=== PATIENT | male | born 1975 | race American Indian/Alaskan Native ===

== ENCOUNTER 2017-04-25 09:12 | Day surgery (SDC) | payer MEDICARE ==
--- NOTE | 2017-04-25 09:37 | Short Stay Summary ---
Short Stay Documentation Date of service: 04/25/17 - History Principal diagnosis: LUE swelling H&P: obtained from office - Allergies and Medications Current Medications: Allergies cefazolin sodium [From [facility]] Allergy (Verified 02/18/17 08:06) Vomiting Home Medications Medication Instructions Recorded Confirmed Last Taken Type Calcium Acetate 667 mg PO TID 01/10/14 02/18/17 1 Day Ago History Active Medications Sodium Chloride (Nacl 0.9% 1000 Ml) 1,000 mls @ 42 mls/hr IV DIRECT VICKY - Brief post op/procedure progress note Date of procedure: 04/25/17 Pre-op diagnosis: malfunctioning dialysis access Post-op diagnosis: same Procedure: LUE FGA Anesthesia: local Surgeon: SAMY CHRISTINA Estimated blood loss: minimal Pathology: none Condition: stable - Disposition Condition at discharge: Good Disposition: DISCHARGED TO HOME OR SELFCARE Short Stay Discharge Plan Activity: advance as tolerated Weight Bearing Status: Weight Bear as Tolerated Diet: renal Wound: keep clean and dry, per your surgeon's advice Follow up with: DIANNA MARTIN MD [Primary Care Provider] - 7 Days SUSAN MONTALVO MD [Staff Physician] - 7 Days
[2017-04-25] MEDS ORDERED: NACL 0.9% 500 ML 500 ML IV SCH (10:00)
[2017-04-25] MEDS ORDERED: HEPARIN 10,000 UNITS/10 ML ONE (10:55)
[2017-04-25] MEDS ORDERED: VANCOMYCIN/NS 1 GM/250 ML 1 GM/250 ML BAG IV ONE (10:55)
[2017-04-25] MEDS ORDERED: SUBLIMAZE ONE (10:55)
[2017-04-25] MEDS ORDERED: XYLOCAINE 2% INFILTRATI ONE (10:55)
[2017-04-25] MEDS ORDERED: VERSED ONE (10:55)
[2017-04-25] MEDS ORDERED: HEPARIN/NS 5000 UNIT/500ML(CATH LAB) 1,000 ML IR ONE (10:55)
--- NOTE | 2017-04-25 11:45 | Operative Report ---
Operative Report Operative Report: EXAM: LEFT UPPER EXTREMITY FISTULOGRAM CLINICAL INDICATION: LEFT ARM AND FACIAL SWELLING DATE: 04/25/2017 PROCEDURE: Following an excellent addition of the risks, benefits and alternatives; written informed consent was obtained. The patient was brought to the injury graphic suite and placed in supine position on the examination table. A palpable thrill is present in the patient's left upper extremity fistula. There is diffuse swelling of the left upper extremity. Patient's left arm and fistula were prepped and draped in the usual sterile fashion. 1% lidocaine was used for anesthesia. A 7 cm 21-gauge needle was advanced to the fistula directed towards the venous outflow. A 0.018 guidewire was advanced through the needle and the needle removed and exchanged for a micro-sheath. The 0.018 guidewire was exchanged for a 0.035 guidewire and the micro-sheath exchanged for a 6 [place]oc[place] vascular sheath. Venography performed to the sheath demonstrates an enlarged fistula an area the cannulation site with the presence of extensive collateral veins in the upper arm. There is complete occlusion of the subclavian vein with only collateral flow distally. No filling of the right cephalic vein or SVC is identified from the left side even on delayed imaging. A 4 Moroccan vertebral catheter was then advanced over the guidewire to the area of the occlusion. Multiple attempts were made to cannulate the occluded subclavian vein. 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 Ultimately, the subclavian vein remains occluded and the catheters, guidewires and she's were removed and hemostasis achieved using 4-0 Vicryl suture and manual compression. A sterile dressing was then applied. The patient tolerated the procedure well. There were no immediate post procedure competitions. Conscious sedation was performed under the guidance of radiologic nursing. Continuous cardiopulmonary monitoring was utilized. IMPRESSION: 1) Left upper extremity fistulogram demonstrating complete occlusion of the left subclavian vein. The patient has known occlusion of the left brachial cephalic vein and this appears to be an extension of that process. Patient has poorly developed collaterals leading to left upper extremity swelling. He will need further evaluation for possible fistula ligation in fistula creation in the right arm.
[2017-04-25 12:40] VITALS: BP 142/94
[2017-04-25] MEDS ORDERED: NACL 0.9% 1000 ML 1,000 ML IV SCH (16:00)
== END 2017-04-25 13:00 | disposition home or self-care (01) ==
LOC: OPU 09:12
PROVIDERS: ATTEND Radiology Diagnostic Radiology
DX: T82.590A Other mechanical complication of surgically created arteriovenous fistula, initial encounter (principal); I12.0 Hypertensive chronic kidney disease with stage 5 chronic kidney disease or end stage renal disease; N18.6 End stage renal disease; Y83.2 Surgical operation with anastomosis, bypass or graft as the cause of abnormal reaction of the patient, or of later complication, without mention of misadventure at the time of the procedure; Z99.2 Dependence on renal dialysis; Z88.1 Allergy status to other antibiotic agents; Z98.890 Other specified postprocedural states; Z79.899 Other long term (current) drug therapy
CPT/HCPCS: 36415; 36901; 84132; C1751; C1769; C1894; J1644; J2250; J3010; J3370; J7040; Q9967

== ENCOUNTER 2017-06-09 07:20 | Day surgery (SDC) | payer MEDICARE ==
[~2017-06-09 07:20] MED LIST: NACL 0.9% 1000 ML 1,000 ML IV SCH; VANCOMYCIN/NS 1 GM/250 ML 1 GM/250 ML BAG IV NR
[2017-06-09] MEDS ORDERED: DILAUDID IV PRN (08:52)
--- NOTE | 2017-06-09 08:54 | Anesthesia Day of Surgery ---
Anesthesia Day of Surgery - Day of Surgery Patient Examined: Yes Patient H&P Reviewed: Yes Patient is NPO: Yes
--- NOTE | 2017-06-09 08:58 | Anesthesia Consultation ---
Anesthesia Consult and Med Hx Date of service: 06/16/17 - Airway Anesthetic Teeth Evaluation: Good ROM Head & Neck: Adequate Mental/Hyoid Distance: Adequate Mallampati Class: Class II Intubation Access Assessment: Probably Good - Pulmonary Exam CTA: Yes - Cardiac Exam Cardiac Exam: RRR - Pre-Operative Health Status ASA Pre-Surgery Classification: ASA3 Proposed Anesthetic Plan: General - Pulmonary Hx Smoking: Yes (QUIT 2 MONTHS AGO, SMOKED 1/2 PPD X 6 YRS) Hx Asthma: No COPD: No Hx Pneumonia: No Hx Sleep Apnea: No - Cardiovascular System Hx Hypertension: No - Central Nervous System Hx Seizures: No CVA: No Hx Psychiatric Problems: No - Endocrine Hx Renal Disease: Yes (dialysis , had HD yesterday) Hx End Stage Renal Disease: Yes (2000 started dialysis - LUE fistula functioning but arm swollen) Hx Cirrhosis: No Hx Insulin Dependent Diabetes: No Hx Non-Insulin Dependent Diabetes: No Hx Thyroid Disease: No (s/p parathyroidectomy) - Hematic Hx Anemia: Yes - Other Systems Hx Alcohol Use: No Hx Cancer: No Hx Obesity: No
[2017-06-09] MEDS ORDERED: PEPCID PO NR (09:00)
[2017-06-09] MEDS ORDERED: VERSED IV NR (09:00)
[2017-06-09] MEDS ORDERED: DIPRIVAN 10 MG/ML IV ONE (09:05)
[2017-06-09] MEDS ORDERED: SUBLIMAZE ONE ×2 (09:05→12:31)
[2017-06-09] MEDS ORDERED: XYLOCAINE MPF 2% ONE (09:20)
[2017-06-09] MEDS ORDERED: ROBINUL ONE (09:20)
[2017-06-09] MEDS ORDERED: ZOFRAN IV PRN (09:30)
[2017-06-09] MEDS ORDERED: NEO SYNEPHRINE ONE (09:55)
[2017-06-09 10:23] LABS: BUN/Creatinine Ratio 3.84; Chloride 96.9 mmol/L (98-107); Potassium 5.3 mmol/L (3.6-5.0)
[2017-06-09 10:26] LABS: Hematocrit 35.2 % (35.5-45.6); Hemoglobin 11.1 gm/dl (11.8-15.2); Mean Corpuscular HGB Conc 32 % (32-34); Mean Corpuscular Hemoglobin 28 pg (28-32); Mean Corpuscular Volume 89 fl (84-94); Platelet Count 135 K/mm3 (140-440); Red Blood Count 3.96 M/mm3 (3.65-5.03); Red Cell Distribution Width 17.8 % (13.2-15.2); White Blood Count 2.6 K/mm3 (4.5-11.0)
[2017-06-09] MEDS ORDERED: RIFADIN ONE (10:36)
[2017-06-09] MEDS ORDERED: NACL ONE (10:36)
[2017-06-09] MEDS ORDERED: NACL 0.9% 500 ML 500 ML ONE (10:36)
[2017-06-09] MEDS ORDERED: GELFOAM TP ONE ×2 (10:36→11:34)
[2017-06-09] MEDS ORDERED: MARCAINE-EPI/PF 0.5%-1:200,000 INFILTRATI ONE ×2 (10:36→11:34)
[2017-06-09] MEDS ORDERED: THROMBIN (BOVINE) TP ONE ×2 (10:36→11:34)
[2017-06-09] MEDS ORDERED: HEPARIN 10,000 UNITS/10 ML ONE ×2 (10:36→12:05)
[2017-06-09] MEDS ORDERED: NACL 0.9% 100 ML ONE (10:55)
[2017-06-09] MEDS ORDERED: NACL 0.9% 250ML IV ONE (11:34)
[2017-06-09] MEDS ORDERED: HEPARIN 10,000 UNITS/10 ML IV ONE (11:34)
[2017-06-09] MEDS ORDERED: DECADRON ONE (11:56)
[2017-06-09] MEDS ORDERED: ZOFRAN ONE (11:56)
[2017-06-09 12:12] LABS: Basophils % (Manual) 0 % (0.0-1.8); Blastocytes % (Manual) 0 %; Eosinophils % (Manual) 0 % (0.0-4.3)
[2017-06-09 12:13] LABS: Tear Drop Cells Few
[2017-06-09 12:15] LABS: Ovalocytes Rare; Poikilocytosis 1+
[2017-06-09 12:16] LABS: Diff Status Complete; Platelet Estimate Consistent w Auto
--- NOTE | 2017-06-09 12:58 | Operative Report ---
Operative Report Operative Report: Date of procedure: 06/09/2017 Pre-operative diagnosis: End-stage renal failure Post-operative diagnosis: Same Procedure name(s): Basalic vein to brachial artery fistula at the level of the elbow in the right upper extremity by forearm transposition Surgeon: Mike Choudhury MD Typists Supervisor: [CHARU Coburn] Anesthesia: Local MAC EBL: Less than 50 mL Operative indication: Patient is a 41 year old male with a history of end-stage renal failure. The patient presents for establishment of long-term hemodialysis access. Findings: Excellent thrill in the arteriovenous fistula at the end of the procedure. Easily palpable radial pulse distal to the anastomosis. Procedure: The patient was placed on the table in the supine position. The right arm was prepped with ChloraPrep solution and draped in the usual sterile fashion. The ultrasound was used to identify the basilic vein after a tourniquet had been placed in the upper arm using a rubber glove. The vein appeared to be of adequate caliber and no thrombus was noted. The cephalic vein at the wrist contained chronic thrombus. The cephalic vein in the upper arm had been previously used for a fistula and there appeared to be a stent in the vein on ultrasound. The vein was completely occluded. Overall, it appeared that the upper arm basilic vein was the best vein to use. Under local anesthesia, an incision was made across the elbow medially along the course of the basilic vein. Dissection was carried out to identify the basilic vein. A small, separate incision was made in the antecubital fossa just above the previous incision site to identify the brachial artery. This was surrounded with Vesseloops proximally and distally just proximal to the previous vein anastomosis.. The vein was dissected from the surrounding tissue to provide enough length to reach the artery. A small subcutaneous tunnel was then made between the 2 incisions. The vein was divided distally and then spatulated to create a T-type anastomosis with the side of the artery. An arteriotomy was made which was about 5 mm in length. 70 proline was used to anastomose the vein to the artery. All vessels were flushed and vented to remove any air or debris. There was excellent arterial inflow. The anastomosis was completed and flow started into the fistula with the development of a thrill along the distal third of the upper arm. There was some angulation of the vein near the anastomosis due to the tendon in the area so I incised this partially to relax the transition into the deeper part of the arm where the artery was. The thrill improved even more after that. Hemostasis was obtained. The wounds were infiltrated with half percent Marcaine and epinephrine. Closure was done with 3-0 Vicryl and 4-0 subcuticular PDS. Dermabond was placed. The patient tolerated the procedure well. There was an easily palpable right radial pulse at the end of the procedure. There was a good thrill in the fistula at the end of the procedure. Sponge, needle, and instrument counts were reported as correct.
--- NOTE | 2017-06-09 13:24 | Short Stay Summary ---
Short Stay Documentation Date of service: 06/09/17 - History H&P: obtained from office - Allergies and Medications Current Medications: Allergies cefazolin sodium [From [facility]] Allergy (Verified 02/18/17 08:06) Vomiting Home Medications Medication Instructions Recorded Confirmed Last Taken Type Calcium Acetate 667 mg PO TID 01/10/14 06/09/17 06/08/17 History HYDROcodone/APAP 5-325 [[place] 1 each PO Q4HR PRN #40 tablet 06/09/17 Unknown Rx 5/325] Active Medications Famotidine (Pepcid) 20 mg PO PREOP NR Stop: 06/09/17 15:00 Last Admin: 06/09/17 09:53 Dose: 20 mg Hydromorphone HCl (Dilaudid) 0.5 mg IV Q10MIN PRN PRN Reason: Pain , Severe (7-10) Stop: 06/09/17 15:00 Sodium Chloride (Nacl 0.9% 1000 Ml) 1,000 mls @ 42 mls/hr IV DIRECT VICKY Last Admin: 06/09/17 09:45 Dose: 42 mls/hr Vancomycin HCl (Vancomycin/Ns 1 Gm/250 Ml) 1 gm in 250 mls @ 166.667 mls/hr IV PREOP NR PRN Reason: Protocol Stop: 06/09/17 23:59 Last Admin: 06/09/17 09:55 Dose: 166.667 mls/hr Midazolam HCl (Versed) 2 mg IV PREOP NR Stop: 06/09/17 23:59 Last Admin: 06/09/17 09:53 Dose: 2 mg - Brief post op/procedure progress note Procedure: Operative Report Operative Report: Date of procedure: 06/09/2017 Pre-operative diagnosis: End-stage renal failure Post-operative diagnosis: Same Procedure name(s): Basalic vein to brachial artery fistula at the level of the elbow in the right upper extremity by forearm transposition Surgeon: Javi Posada MD Oil Well Logging Engineer: [CHARU Coburn] Anesthesia: Local MAC EBL: Less than 50 mL Operative indication: Patient is a 41 year old male with a history of end-stage renal failure. The patient presents for establishment of long-term hemodialysis access. Findings: Excellent thrill in the arteriovenous fistula at the end of the procedure. Easily palpable radial pulse distal to the anastomosis. - Disposition Condition at discharge: Good Disposition: DC-01 TO HOME OR SELFCARE - Discharge Diagnoses (1) Malfunction of arteriovenous dialysis fistula Status: Acute Qualifiers: Encounter type: E (2) ESRD on hemodialysis Status: Acute Short Stay Discharge Plan Activity: advance as tolerated Weight Bearing Status: Weight Bear as Tolerated Diet: renal Wound: keep clean and dry Follow up with: JAVI POSADA MD [Staff Physician] - 7 Days Prescriptions: HYDROcodone/APAP 5-325 [[place] 5/325] 1 each PO Q4HR PRN #40 tablet PRN Reason: Pain
[2017-06-09 14:27] VITALS: BP 156/74
== END 2017-06-09 15:25 | disposition home or self-care (01) ==
LOC: OR 07:20
PROVIDERS: ATTEND Surgery Vascular Surgery
DX: I12.0 Hypertensive chronic kidney disease with stage 5 chronic kidney disease or end stage renal disease (principal); N18.6 End stage renal disease; D64.9 Anemia, unspecified; Z88.1 Allergy status to other antibiotic agents; Z99.2 Dependence on renal dialysis; Z98.890 Other specified postprocedural states; Z87.891 Personal history of nicotine dependence; Z79.899 Other long term (current) drug therapy; Y83.2 Surgical operation with anastomosis, bypass or graft as the cause of abnormal reaction of the patient, or of later complication, without mention of misadventure at the time of the procedure
CPT/HCPCS: 36415; 36819; 80048; 85007; 85025; A4649; C1757; J1100; J1644; J2250; J2370; J2405; J2704; J3010; J3370; J7030; J7040; J7050; J3490

== ENCOUNTER 2017-09-01 05:36 | Day surgery (SDC) | payer MEDICARE ==
[2017-09-01] MEDS ORDERED: VANCOMYCIN/NS 1 GM/250 ML 1 GM/250 ML BAG IV NR (06:00)
[2017-09-01] MEDS ORDERED: NACL 0.9% 1000 ML 1,000 ML IV SCH (06:00)
[2017-09-01] MEDS ORDERED: NACL BACTERIOSTATIC INFILTRATI ONE (06:25)
[2017-09-01] MEDS ORDERED: GELFOAM TP ONE (07:19)
[2017-09-01] MEDS ORDERED: PAPAVERINE ONE (07:19)
[2017-09-01] MEDS ORDERED: HEPARIN 10,000 UNITS/10 ML ONE (07:19)
[2017-09-01] MEDS ORDERED: PROTAMINE SULFATE ONE (07:19)
--- NOTE | 2017-09-01 07:19 | Anesthesia Consultation ---
Anesthesia Consult and Med Hx Date of service: 09/01/17 - Airway Anesthetic Teeth Evaluation: Good ROM Head & Neck: Adequate Mental/Hyoid Distance: Adequate Mallampati Class: Class II Intubation Access Assessment: Probably Good - Pulmonary Exam CTA: Yes - Cardiac Exam Cardiac Exam: RRR - Pre-Operative Health Status ASA Pre-Surgery Classification: ASA4 Proposed Anesthetic Plan: General - Pulmonary Hx Smoking: Yes (former) Hx Asthma: No COPD: No Hx Pneumonia: No Hx Sleep Apnea: No - Cardiovascular System Hx Hypertension: Yes (per pt resolved) - Central Nervous System Hx Psychiatric Problems: No - Endocrine Hx Renal Disease: Yes (dialysis --, had HD yesterday) Hx End Stage Renal Disease: Yes Hx Cirrhosis: No Hx Insulin Dependent Diabetes: No Hx Non-Insulin Dependent Diabetes: No Hx Thyroid Disease: No (s/p parathyroidectomy) - Hematic Hx Anemia: Yes - Other Systems Hx Cancer: No Hx Obesity: No
[2017-09-01] MEDS ORDERED: MARCAINE-EPI/PF 0.5%-1:200,000 INFILTRATI ONE (07:20)
[2017-09-01] MEDS ORDERED: THROMBIN (BOVINE) TP ONE (07:20)
[2017-09-01] MEDS ORDERED: NACL 0.9% 500 ML 500 ML ONE (07:20)
--- NOTE | 2017-09-01 07:20 | Anesthesia Day of Surgery ---
Anesthesia Day of Surgery - Day of Surgery Patient Examined: Yes Patient H&P Reviewed: Yes Patient is NPO: Yes
[2017-09-01] MEDS ORDERED: DIPRIVAN 10 MG/ML IV ONE (07:23)
[2017-09-01] MEDS ORDERED: DILAUDID ONE (07:24)
[2017-09-01] MEDS ORDERED: XYLOCAINE MPF 2% ONE (07:24)
[2017-09-01 07:43] LABS: INR 1.07 (0.87-1.13)
[2017-09-01 07:46] LABS: Calcium 8.4 mg/dL (8.4-10.2); Chloride 93.9 mmol/L (98-107); Potassium 4.4 mmol/L (3.6-5.0)
[2017-09-01 07:55] LABS: Basophils % (Auto) 0.8 % (0.0-1.8); Eosinophils % (Auto) 1.1 % (0.0-4.3); Hematocrit 32.6 % (35.5-45.6); Hemoglobin 10.4 gm/dl (11.8-15.2); Mean Corpuscular HGB Conc 32 % (32-34); Mean Corpuscular Hemoglobin 28 pg (28-32); Mean Corpuscular Volume 87 fl (84-94); Platelet Count 160 K/mm3 (140-440); Red Blood Count 3.75 M/mm3 (3.65-5.03); Red Cell Distribution Width 17.5 % (13.2-15.2); White Blood Count 3.4 K/mm3 (4.5-11.0)
[2017-09-01] MEDS ORDERED: MARCAINE-EPI 0.5%-1:200,000 INFILTRATI ONE ×2 (08:54)
[2017-09-01] MEDS ORDERED: NACL 0.9% IR ONE (08:54)
[2017-09-01] MEDS ORDERED: ePHEDrine SULFATE ONE (08:54)
[2017-09-01] MEDS ORDERED: HEPARIN 10,000 UNITS/10 ML 2,000 UNIT in NACL 0.9% 500 ML 500 ML IR ONE (08:55)
--- NOTE | 2017-09-01 11:13 | Short Stay Summary ---
Short Stay Documentation - History H&P: obtained from office - Allergies and Medications Current Medications: Allergies cefazolin sodium [From [facility]] Allergy (Verified 08/30/17 15:58) Vomiting Home Medications Medication Instructions Recorded Confirmed Last Taken Type Calcium Acetate 667 mg PO TID 01/10/14 09/01/17 08/31/17 History Active Medications Sodium Chloride (Nacl 0.9% 1000 Ml) 1,000 mls @ 42 mls/hr IV DIRECT VICKY Last Admin: 09/01/17 07:20 Dose: 42 mls/hr Vancomycin HCl (Vancomycin/Ns 1 Gm/250 Ml) 1 gm in 250 mls @ 166.667 mls/hr IV PREOP NR PRN Reason: Protocol Stop: 09/01/17 23:59 Last Admin: 09/01/17 07:30 Dose: 166.667 mls/hr - Brief post op/procedure progress note Date of procedure: 09/01/17 Pre-op diagnosis: FAILING RUE AVF Post-op diagnosis: same Procedure: ELEVATION OF RIGHT UPPER ARM BASILIC VEIN FISTULA Anesthesia: other (LMA, MARCAINE LOCAL) Findings: GOOD THRILL IN AVF AT THE END OF THE PROCEDURE Surgeon: JAVI POSADA Estimated blood loss: 50-100ml Pathology: none Condition: stable - Hospital course Hospital course: BENIGN - Disposition Condition at discharge: Good Disposition: DC-01 TO HOME OR SELFCARE Short Stay Discharge Plan Activity: advance as tolerated Diet: advance as tolerated Wound: per your surgeon's advice Follow up with: JAVI POSADA MD [Staff Physician] - 7 Days Prescriptions: HYDROcodone/APAP 5-325 [[place] 5/325] 1 each PO Q6HR PRN #40 tablet PRN Reason: Pain
--- NOTE | 2017-09-01 11:23 | Operative Report ---
Operative Report Operative Report: Date of procedure: 10/02/2017 Pre-operative diagnosis: Failing arteriovenous fistula right upper extremity Post-operative diagnosis: Same Procedure name(s): Creation of right upper extremity arteriovenous fistula by upper arm basilic vein transposition Surgeon: Mike Choudhury MD Tumbling And Rolling Supervisor: None Anesthesia: Gen. with local supplementation using half percent Marcaine plain with epinephrine EBL: Less than 150 mL Operative indication: Patient is a 41-year-old man with end-stage renal failure. There is a maturing basilic vein fistula in the right upper extremity. This requires elevation for use. Findings: Excellent thrill in the fistula the end of the procedure. Easily palpable right radial pulse at the end of the procedure. Procedure: The patient was placed on the table in the supine position. General anesthesia was given. The area over the right arm was prepped with ChloraPrep solution and draped in the usual sterile fashion. Ultrasound guidance was used to identify the location of the basilic vein. The area around the incision site was infiltrated with half percent Marcaine with epinephrine. A linear incision was made along the medial portion of the upper arm over the basilic vein. Dissection was carried out to identify the vein. All nerve structures were spared. There was dense scar tissue around the fistula at the area of the elbow which was quite difficult to dissected. All visible nerve structures were spared in this area including a nerve structure which was scarred heavily to the body of the fistula. All branches of the fistula were taken down with clips and 3-0 silk ties. A subcutaneous tunnel was made on the anterior surface of the upper arm. The tunnel was infiltrated with half percent Marcaine with epinephrine. Patient was heparinized with 2000 units of intravenous heparin. The vein was occluded near the arterial anastomosis. The vein was divided and hydrodilated with heparinized saline. The vein was then tunneled through the subcutaneous tunnel and redilated with heparinized saline to prevent any kinks or twisting in the fistula. An end to end anastomosis was created in a beveled fashion between the 2 ends of the vein at the arterial side of the fistula using 60 proline. The fistula was flushed and vented to remove any air or debris and then flow was started into the fistula with the development of an immediate and excellent thrill over the entire body of the fistula in the upper arm. Meticulous hemostasis was obtained. Closure was done with 3-0 Vicryl on the subcutaneous tissue. 4-0 subcuticular PDS was used to close the skin. Sterile dressings were applied. Sponge, needle, and instrument counts were reported as correct. The patient tolerated the procedure well and left the operating room with an easily palpable right radial pulse and an easily palpable thrill in the arteriovenous fistula.
[2017-09-01] MEDS: DILAUDID IV PRN ×2 (11:40→11:50)
[2017-09-01] MEDS ORDERED: APRESOLINE ONE (11:50)
[2017-09-01] MEDS ORDERED: NORCO 5/325 PO ONE (12:00)
[2017-09-01] MEDS ORDERED: NEO SYNEPHRINE/NS Syringe(OR USE) IV ONE (12:00)
[2017-09-01] MEDS ORDERED: APRESOLINE IV ONE (12:15)
[2017-09-01] MEDS ORDERED: APRESOLINE PO ONE (12:15)
[2017-09-01 13:51] VITALS: BP 168/60
== END 2017-09-01 13:20 | disposition home or self-care (01) ==
LOC: OR 05:36
PROVIDERS: ATTEND Surgery Vascular Surgery
DX: T82.898A Other specified complication of vascular prosthetic devices, implants and grafts, initial encounter (principal); Y83.2 Surgical operation with anastomosis, bypass or graft as the cause of abnormal reaction of the patient, or of later complication, without mention of misadventure at the time of the procedure; E89.0 Postprocedural hypothyroidism; I12.0 Hypertensive chronic kidney disease with stage 5 chronic kidney disease or end stage renal disease; N18.6 End stage renal disease; Z79.01 Long term (current) use of anticoagulants; Z87.891 Personal history of nicotine dependence; Z99.2 Dependence on renal dialysis
CPT/HCPCS: 36415; 36819; 80048; 85025; 85610; C9250; J0360; J1170; J1644; J2370; J2704; J3370; J7030; J7040; A4649; J2440; J2720

== ENCOUNTER 2018-03-30 05:52 | Day surgery (SDC) | payer MEDICARE ==
[2018-03-30] MEDS ORDERED: NACL 0.9% 1000 ML 1,000 ML IV SCH (06:00)
[2018-03-30] MEDS ORDERED: VANCOMYCIN/NS 1 GM/250 ML 1 GM/250 ML BAG IV NR (06:00)
[2018-03-30] MEDS ORDERED: HEPARIN 10,000 UNITS/10 ML ONE (06:52)
[2018-03-30] MEDS ORDERED: XYLOCAINE 1% 20 mL ONE (06:52)
[2018-03-30] MEDS ORDERED: NACL 0.9% 250ML 250 ML ONE ×2 (06:52→08:07)
[2018-03-30] MEDS ORDERED: SODIUM BICARBONATE ONE ×2 (06:52→08:07)
[2018-03-30] MEDS ORDERED: MARCAINE 0.5% 30 ML INFILTRATI ONE ×2 (06:52→08:06)
[2018-03-30] MEDS ORDERED: NACL BACTERIOSTATIC INFILTRATI ONE (06:53)
[2018-03-30] MEDS ORDERED: DIPRIVAN 10 MG/ML IV ONE (07:06)
[2018-03-30] MEDS ORDERED: SUBLIMAZE ONE ×2 (07:06→10:09)
[2018-03-30 07:12] LABS: Hematocrit 32.3 % (35.5-45.6); Hemoglobin 10.5 gm/dl (11.8-15.2); Mean Corpuscular HGB Conc 33 % (32-34); Mean Corpuscular Hemoglobin 28 pg (28-32); Mean Corpuscular Volume 87 fl (84-94); Platelet Count 148 K/mm3 (140-440); Red Cell Distribution Width 19.2 % (13.2-15.2)
--- NOTE | 2018-03-30 07:25 | Anesthesia Consultation ---
Anesthesia Consult and Med Hx - Airway Anesthetic Teeth Evaluation: Good ROM Head & Neck: Adequate Mental/Hyoid Distance: Adequate Mallampati Class: Class II Intubation Access Assessment: Good - Pulmonary Exam CTA: Yes - Cardiac Exam Cardiac Exam: RRR - Pre-Operative Health Status ASA Pre-Surgery Classification: ASA3 Proposed Anesthetic Plan: General - Pulmonary Hx Smoking: Yes (former) - Cardiovascular System Hx Hypertension: Yes (per pt resolved) - Central Nervous System Hx Psychiatric Problems: No - Endocrine Hx Renal Disease: Yes Hx End Stage Renal Disease: Yes Hx Insulin Dependent Diabetes: No Hx Non-Insulin Dependent Diabetes: No Hx Thyroid Disease: No (s/p parathyroidectomy) - Hematic Hx Anemia: Yes - Other Systems Hx Cancer: No
[2018-03-30 07:26] LABS: Calcium 7.8 mg/dL (8.4-10.2)
[2018-03-30] MEDS ORDERED: ZOFRAN IV PRN (07:26)
[2018-03-30] MEDS ORDERED: DILAUDID IV PRN (07:26)
--- NOTE | 2018-03-30 07:26 | Anesthesia Day of Surgery ---
Anesthesia Day of Surgery - Day of Surgery Patient Examined: Yes Patient H&P Reviewed: Yes Patient is NPO: Yes
[2018-03-30] MEDS ORDERED: XYLOCAINE 1%/ EPI 1:100,000 INFILTRATI ONE (08:07)
[2018-03-30 08:35] LABS: Total Cells Counted 100
[2018-03-30 08:36] LABS: Anisocytosis 1+; Hypochromasia Few; Platelet Estimate Cons
[2018-03-30] MEDS ORDERED: ZOFRAN ONE (08:45)
[2018-03-30] MEDS ORDERED: NEO SYNEPHRINE/NS Syringe(OR USE) IV ONE ×2 (08:46→10:08)
[2018-03-30] MEDS ORDERED: ePHEDrine SULFATE ONE (09:06)
[2018-03-30] MEDS ORDERED: DDAVP 20 MCG in NACL 0.9% 50 ML IV ONE (09:30)
[2018-03-30] MEDS ORDERED: MARCAINE 0.5% INFILTRATI ONE (09:31)
[2018-03-30] MEDS ORDERED: NACL 0.9% IR ONE (09:31)
[2018-03-30] MEDS ORDERED: HEPARIN 10,000 UNITS/10 ML 1,000 UNIT in NACL 0.9% 250ML 250 ML IR ONE (09:32)
--- NOTE | 2018-03-30 12:02 | Operative Report ---
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 EBL: 150 mL Specimen(s): Ulcerated fistula and skin Complications: None Findings: Enlarged ulcerated AV fistula successfully excised and flow in brachial artery distal to the arterial repair Procedure: Patient in the supine position with the left arm extended the entire extremity was prepped and draped using standard sterile technique. A longitudinal incision was made beginning on the venous side of the pseudoaneurysm and extending distally along the fistula to the arterial anastomosis at the antecubital fossa. The skin overlying the fistula was excised in elliptical fashion keeping it attached to the fistula. Dissection was then carried deeply until the anterior surface of the fistula was identified throughout the entire length and using a combination of sharp and blunt dissection the fistula was from the surrounding soft tissue in the arm. It was a modest amount of venous bleeding secondary to chronic venous hypertension. This is controlled using a variety of techniques including suture ligature vessel ties and electrocautery. Once the fistula was sufficiently mobilized in the upper arm I then continued distally until the anastomosis was identified and a centimeter or 2 of brachial artery on either side of the fistula was dissected from the scar tissue and encircled using vessel loops. The artery was then occluded and the fistula was then divided and controlled with vascular clamps. I left a small amount of of the fistula over the opening and then sewed this down as a patch using 2-0 Prolene suture in running technique. Flow was then released back to the hand with the development of an excellent radial artery Doppler signal which was Asst. with his preoperative evaluation. Stasis was good. Fistula was then ligated proximally in the arm and then excised and sent for pathological assessment. Hemostasis was obtained using electrocautery. The patient was also given DDAVP venously by anesthesia. The incision was blocked with field block of Marcaine 0.5% therapy and closed using 3-0 Vicryl subcutaneous. The skin was reapproximated with 0 Monocryl subcuticular and the incision was sealed with Dermabond. A fluff dressing was applied along with Carlos wrap light compression. Patient was then returned to the supine position extubated and returned to the recovery room in stable condition having tolerated the procedure well. Sponge and needle counts were correct.
--- NOTE | 2018-03-30 12:09 | Short Stay Summary ---
Short Stay Documentation Narrative H&P: Admitted to the operating suite for outpatient removal of an AV fistula and repair of brachial artery - History H&P: obtained from office - Allergies and Medications Current Medications: Allergies cefazolin sodium [From [facility]] Allergy (Verified 03/29/18 13:43) Vomiting Home Medications Medication Instructions Recorded Confirmed Last Taken Type Calcium Acetate 667 mg PO TID 01/10/14 03/30/18 03/29/18 22:00 History HYDROcodone/APAP 5-325 [[place] 1 each PO Q6HR PRN #40 tablet 09/01/17 03/29/18 Unknown Rx 5/325] Active Medications Hydromorphone HCl (Dilaudid) 0.5 mg IV Q10MIN PRN PRN Reason: Pain , Severe (7-10) Stop: 03/30/18 13:00 Sodium Chloride (Nacl 0.9% 1000 Ml) 1,000 mls @ 42 mls/hr IV DIRECT VICKY Last Admin: 03/30/18 07:53 Dose: 42 mls/hr Vancomycin HCl (Vancomycin/Ns 1 Gm/250 Ml) 1 gm in 250 mls @ 166.667 mls/hr IV PREOP NR; Protocol Stop: 03/30/18 23:59 Last Admin: 03/30/18 08:12 Dose: 166.667 mls/hr - Brief post op/procedure progress note Date of procedure: 03/30/18 Procedure: Pre-operative diagnosis: Complications of hemodialysis access left arm ( ulcerated AV fistula with chronic venous hypertension secondary to central vein stenosis) Post-operative diagnosis: Same Procedure name(s): Excision of ulcerated AV fistula left arm, repair of brachial artery with vein Surgeon: Domo Tello MD Field Operations Supervisor: None Anesthesia: Gen. EBL: 150 mL Specimen(s): Ulcerated fistula and skin Complications: None Findings: Enlarged ulcerated AV fistula successfully excised and flow in brachial artery distal to the arterial repair Procedure: Patient in the supine position with the left arm extended the entire extremity was prepped and draped using standard sterile technique. A longitudinal incision was made beginning on the venous side of the pseudoaneurysm and extending distally along the fistula to the arterial anastomosis at the antecubital fossa. The skin overlying the fistula was excised in elliptical fashion keeping it attached to the fistula. Dissection was then carried deeply until the anterior surface of the fistula was identified throughout the entire length and using a combination of sharp and blunt dissection the fistula was from the surrounding soft tissue in the arm. It was a modest amount of venous bleeding secondary to chronic venous hypertension. This is controlled using a variety of techniques including suture ligature vessel ties and electrocautery. Once the fistula was sufficiently mobilized in the upper arm I then continued distally until the anastomosis was identified and a centimeter or 2 of brachial artery on either side of the fistula was dissected from the scar tissue and encircled using vessel loops. The artery was then occluded and the fistula was then divided and controlled with vascular clamps. I left a small amount of of the fistula over the opening and then sewed this down as a patch using 2-0 Prolene suture in running technique. Flow was then released back to the hand with the development of an excellent radial artery Doppler signal which was Asst. with his preoperative evaluation. Stasis was good. Fistula was then ligated proximally in the arm and then excised and sent for pathological assessment. Hemostasis was obtained using electrocautery. The patient was also given DDAVP venously by anesthesia. The incision was blocked with field block of Marcaine 0.5% therapy and closed using 3-0 Vicryl subcutaneous. The skin was reapproximated with 0 Monocryl subcuticular and the incision was sealed with Dermabond. A fluff dressing was applied along with Carlos wrap light compression. Patient was then returned to the supine position extubated and returned to the recovery room in stable condition having tolerated the procedure well. Sponge and needle counts were correct. 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
[2018-03-30 14:18] VITALS: BP 151/78
--- NOTE | 2018-03-30 17:29 | Post Anesthesia Evaluation ---
- Post Anesthesia Evaluation Patient Participated: Yes Airway Patent: Yes Stable Respiratory Function: Yes Nausea/Vomiting: No Temp > 96.8F: Yes Pain Manageable: Yes Adequeate Hydration: Yes Anesthesia Complications: No
== END 2018-03-30 14:15 | disposition home or self-care (01) ==
LOC: OR 05:52
PROVIDERS: ATTEND Surgery Vascular Surgery
DX: T82.898A Other specified complication of vascular prosthetic devices, implants and grafts, initial encounter (principal); I87.309 Chronic venous hypertension (idiopathic) without complications of unspecified lower extremity; I12.0 Hypertensive chronic kidney disease with stage 5 chronic kidney disease or end stage renal disease; N18.6 End stage renal disease; Z98.890 Other specified postprocedural states; Z88.1 Allergy status to other antibiotic agents; Y83.2 Surgical operation with anastomosis, bypass or graft as the cause of abnormal reaction of the patient, or of later complication, without mention of misadventure at the time of the procedure; Z87.891 Personal history of nicotine dependence
CPT/HCPCS: 36415; 36832; 80048; 85007; 85025; 88304; 88311; J1644; J2370; J2405; J2597; J2704; J3010; J3370; J7030; J7050

== ENCOUNTER 2020-11-05 11:33 | Observation (INO) | payer MEDICARE ==
[2020-11-05 12:58] LABS: Albumin 3.9 g/dL (3.9-5); Calcium 6.5 mg/dL (8.4-10.2)
[2020-11-05 12:59] LABS: Basophils % (Auto) 0.5 % (0.0-1.8); Eosinophils % (Auto) 0.6 % (0.0-4.3); Hemoglobin 9.9 gm/dl (11.8-15.2); Lymphocytes # (Auto) 0.5 K/mm3 (1.2-5.4); Lymphocytes % (Auto) 12.4 % (13.4-35.0); Mean Corpuscular HGB Conc 32 % (32-34); Mean Corpuscular Volume 96 fl (84-94); Monocytes # (Auto) 0.4 K/mm3 (0.0-0.8); Monocytes % (Auto) 10.2 % (0.0-7.3); Platelet Count 147 K/mm3 (140-440); Red Blood Count 3.23 M/mm3 (3.65-5.03); Red Cell Distribution Width 17.6 % (13.2-15.2)
[2020-11-05] MEDS ORDERED: ALBUTEROL 2.5 MG/3 ML NEBU IH ONE (13:54)
[2020-11-05] MEDS ORDERED: DEXTROSE 50% IN WATER (25GM) 50 ML VIAL IV ONE (13:55)
--- NOTE | 2020-11-05 13:58 | Emergency Department Report ---
HPI - General Chief Complaint: Medical Clearance Time Seen by Provider: 11/05/20 13:25 - HPI HPI: This is a 44-year-old -[place] male who presents to the emergency department to get dialysis. The patient does have end-stage renal disease on hemodialysis on Tuesday/Tuesday/Tuesday. The patient was in [place] from last through Tuesday and last got dialyzed last Tuesday. His sawmill relief worker is Dr. Romeo. The patient denies any chest pain, shortness of breath, nausea, vomiting, fever, edema. He has dialysis access to the right upper extremity. ED Past Medical Hx - Past Medical History Previous Medical History?: Yes Hx Hypertension: Yes (per pt resolved) Hx Renal Disease: Yes - Surgical History Past Surgical History?: Yes Additional Surgical History: left arm AV graft, parathyroid removed - Social History Smoking Status: Current Every Day Smoker Substance Use Type: None - Medications Home Medications: Home Medications Medication Instructions Recorded Confirmed Last Taken Type Calcium Acetate 667 mg PO TID 01/10/14 03/30/18 03/29/18 22:00 History 667 mg HYDROcodone/APAP 5-325 [[place] 1 each PO Q6HR PRN #40 tablet 03/30/18 Unknown Rx 5-325 mg TAB] ED Review of Systems ROS: Stated complaint: DIALYSIS Other details as noted in HPI Comment: All other systems reviewed and negative Constitutional: denies: chills, fever Eyes: denies: eye pain, vision change ENT: denies: ear pain, throat pain Respiratory: denies: cough, shortness of breath Cardiovascular: denies: chest pain, palpitations Gastrointestinal: denies: abdominal pain, vomiting Genitourinary: denies: dysuria, discharge Musculoskeletal: denies: back pain, arthralgia Skin: denies: rash, lesions Neurological: denies: headache, weakness Physical Exam - Physical Exam Vital Signs: Vital Signs 11/05/20 11/05/20 11:39 11:42 Temperature 97.8 F Pulse Rate 67 Respiratory 18 Rate Blood Pressure 135/83 O2 Sat by Pulse 99 Oximetry Physical Exam: GENERAL: The patient is well-developed well-nourished. HENT: Normocephalic. Atraumatic. Patient has moist mucous membranes. EYES: Extraocular motions are intact. NECK: Supple. Trachea is midline. CHEST/LUNGS: Clear to auscultation. There is no respiratory distress noted. HEART/CARDIOVASCULAR: Regular. There is no tachycardia. There is no murmur. ABDOMEN: Abdomen is soft, nontender. Patient has normal bowel sounds. SKIN: Skin is warm and dry. NEURO: The patient is awake, alert, and oriented. The patient is cooperative. The patient has no focal neurologic deficits. Normal speech. MUSCULOSKELETAL: There is no tenderness or deformity. There is no limitation range of motion. There is a right upper extremity dialysis fistula that appears patent. ED Course Vital Signs 11/05/20 11/05/20 11:39 11:42 Temperature 97.8 F Pulse Rate 67 Respiratory 18 Rate Blood Pressure 135/83 O2 Sat by Pulse 99 Oximetry - Reevaluation(s) Reevaluation #1: 11/05/20 16:17 Lab Results 11/05/20 11/05/20 Range/Units 12:19 12:19 WBC 4.1 L (4.5-11.0) K/mm3 RBC 3.23 L (3.65-5.03) M/mm3 Hgb 9.9 L (11.8-15.2) gm/dl Hct 31.0 L (35.5-45.6) % MCV 96 H (84-94) fl MCH 31 (28-32) pg MCHC 32 (32-34) % RDW 17.6 H (13.2-15.2) % Plt Count 147 (140-440) K/mm3 Lymph % (Auto) 12.4 L (13.4-35.0) % [place] % (Auto) 10.2 H (0.0-7.3) % Eos % (Auto) 0.6 (0.0-4.3) % Baso % (Auto) 0.5 (0.0-1.8) % Lymph # (Auto) 0.5 L (1.2-5.4) K/mm3 [place] # (Auto) 0.4 (0.0-0.8) K/mm3 Eos # (Auto) 0.0 (0.0-0.4) K/mm3 Baso # (Auto) 0.0 (0.0-0.1) K/mm3 Seg Neutrophils % 76.3 H (40.0-70.0) % Seg Neutrophils # 3.2 (1.8-7.7) K/mm3 Sodium 138 (137-145) mmol/L Potassium 6.9 H* (3.6-5.0) mmol/L Chloride 97.2 L (98-107) mmol/L Carbon Dioxide 13 L (22-30) mmol/L Anion Gap 35 mmol/L BUN 154 H (9-20) mg/dL Creatinine 23.1 H (0.8-1.3) mg/dL Estimated GFR 3 ml/min BUN/Creatinine Ratio 7 % Glucose 109 H (75-100) mg/dL Calcium 6.5 L (8.4-10.2) mg/dL Total Bilirubin 0.30 (0.1-1.2) mg/dL AST 9 (5-40) units/L ALT 7 (7-56) units/L Alkaline Phosphatase 39 (35-129) units/L Total Protein 7.4 (6.3-8.2) g/dL Albumin 3.9 (3.9-5) g/dL Albumin/Globulin Ratio 1.1 % - Consultations Consultation #1: 11/05/20 12:17 I spoke to the sawmill relief worker on-call for [facility] nephrology, Dr. Alberto. She will arrange for dialysis for this patient today. ED Medical Decision Making - Lab Data Result diagrams: 11/05/20 12:19 11/05/20 12:19 - Medical Decision Making This patient presents to get dialysis after missing his last 2 dialysis sessions and he has gone about 1 week without dialysis. He has no complaints of any chest pain, shortness of breath and does not appear in any respiratory or acute distress. However, the patient's labs came back showing significant hyperkalemia with a potassium level of 6.9. Patient was given albuterol, insulin, glucose, calcium gluconate. Nephrology was contacted and consulted and the patient will receive dialysis today. He has been accepted for admission by the hospitalist, Dr. Knapp. Critical Care Time: Yes Critical care time in (mins) excluding proc time.: 31 Critical care attestation.: If time is entered above; I have spent that time in minutes in the direct care of this critically ill patient, excluding procedure time. Critical care time was spent on this patient in doing his initial evaluation, multiple reevaluations, ordering and interpretation of labs, treatment of the significant hyperkalemia, discussion with the nephrology and hospitalist services. Critical Care Time: 31 minutes ED Disposition Clinical Impression: End-stage renal disease needing dialysis, Hyperkalemia, Missed dialysis Disposition: DC-09 OP ADMIT IP TO THIS HOSP Is pt being admited?: Yes Condition: Serious Time of Disposition: 14:12
[2020-11-05] MEDS ORDERED: DEXTROSE 50% IN WATER (25GM) 50 ML SYRINGE IV ONE (14:00)
[2020-11-05] MEDS ORDERED: INSULIN REGULAR, HUMAN 100 UNITS/1 ML ONE (14:00)
[2020-11-05] MEDS ORDERED: INSULIN REGULAR, HUMAN 100 UNIT/ML 3ML VIAL IV SCH (14:00)
[2020-11-05] MEDS ORDERED: CALCIUM GLUCONATE 1,000 MG in SODIUM CHLORIDE 0.9% 100 ML IV ONE ×2 (14:30→20:00)
[2020-11-05 15:11] LABS: Hepatitis B Surface Antigen Non-Reactive (Negative); Hepatitis C Virus Antibody Non-Reactive (NonReactive)
--- NOTE | 2020-11-05 19:11 | Event Note ---
Date: 11/05/20 Case discussed with ER physician Vitals and labs reviewed Urgent hemodialysis ordered. HD nurse notified. Briseida Alberto MD
[2020-11-05 20:07] VITALS: BP 109/78
[2020-11-05 20:58] LABS: Calcium 8.6 mg/dL (8.4-10.2)
--- NOTE | 2020-11-05 21:42 | History and Physical Report ---
History of Present Illness Date of examination: 11/05/20 Date of admission: 11/05/20 14:12 Chief complaint: Missed hemodialysis for 1 week History of present illness: 44-year-old -[place] male with history of hypertension end-stage renal disease has missed dialysis for 1 week. His dialysis center sent him here for clearance. In the emergency room patient was found to have high potassium level because of which patient is being admitted for emergency dialysis and observation status. No shortness of breath. No chest pain. No nausea no vomiting. No fever or chills. No exposure to coronavirus. - Past Medical History Previous Medical History?: Yes --Hypertension: Yes (per pt resolved) --Renal Disease: Yes - Surgical History Past Surgical History?: Yes Additional Surgical History: left arm AV graft, parathyroid removed - Social History Smoking Status: Current Every Day Smoker Substance Use Type: None -- Family history Htn - Medications Home Medications: Home Medications Medication Instructions Recorded Confirmed Last Taken Type Calcium Acetate 667 mg PO TID 01/10/14 03/30/18 03/29/18 22:00 History 667 mg HYDROcodone/APAP 5-325 [[place] 1 each PO Q6HR PRN #40 tablet 03/30/18 Unknown Rx 5-325 mg TAB] --Review of Systems ROS: Stated complaint: DIALYSIS Other details as noted in HPI Comment: All other systems reviewed and negative Constitutional: denies: chills, fever Eyes: denies: eye pain, vision change ENT: denies: ear pain, throat pain Respiratory: denies: cough, shortness of breath Cardiovascular: denies: chest pain, palpitations Gastrointestinal: denies: abdominal pain, vomiting Genitourinary: denies: dysuria, discharge Musculoskeletal: denies: back pain, arthralgia Skin: denies: rash, lesions Neurological: denies: headache, weakness Medications and Allergies Allergies Allergy/AdvReac Type Severity Reaction Status Date / Time cefazolin sodium [From [facility]] Allergy Vomiting Verified 03/29/18 13:43 Home Medications Medication Instructions Recorded Confirmed Last Taken Type Calcium Acetate 667 mg PO TID 01/10/14 03/30/18 03/29/18 22:00 History 667 mg HYDROcodone/APAP 5-325 [[place] 1 each PO Q6HR PRN #40 tablet 03/30/18 Unknown Rx 5-325 mg TAB] Active Meds: Active Medications Insulin Human Regular (Insulin Regular, Human 100 Unit/Ml 3ml Vial) 5 unit IV ONCE VICKY Last Admin: 11/05/20 14:20 Dose: 5 unit Documented by: Exam - Constitutional Vitals: Temp Pulse Resp BP Pulse Ox 98.2 F 80 18 109/78 100 11/05/20 20:04 11/05/20 20:04 11/05/20 20:04 11/05/20 20:04 11/05/20 15:00 General appearance: Present: no acute distress, well-nourished - EENT Eyes: Present: PERRL ENT: hearing intact, clear oral mucosa - Neck Neck: Present: supple, normal ROM - Respiratory Respiratory effort: normal Respiratory: bilateral: CTA - Cardiovascular Heart rate: 78 Heart Sounds: Present: S1 & S2. Absent: rub, click - Extremities Extremities: pulses symmetrical, No edema Peripheral Pulses: within normal limits - Abdominal General gastrointestinal: Present: soft, non-tender, non-distended, normal bowel sounds Male genitourinary: Present: normal - Integumentary Integumentary: Present: clear, warm, dry - Musculoskeletal Musculoskeletal: gait normal, strength equal bilaterally - Psychiatric Psychiatric: appropriate mood/affect, intact judgment & insight - Neurologic Neurologic: CNII-XII intact, moves all extremities Results - Labs CBC & Chem 7: 11/05/20 12:19 11/05/20 20:20 Labs: BMP 11/05/20 11/05/20 12:19 20:20 Sodium 138 137 Potassium 6.9 H* 3.7 D Chloride 97.2 L 92.4 L Carbon Dioxide 13 L 28 D BUN 154 H 56 H Creatinine 23.1 H 11.2 H D Glucose 109 H 72 L Calcium 6.5 L 8.6 D Liver Function 11/05/20 Range/Units 12: Total Bilirubin 0.30 (0.1-1.2) mg/dL AST 9 (5-40) units/L ALT 7 (7-56) units/L Alkaline Phosphatase 39 (35-129) units/L Albumin 3.9 (3.9-5) g/dL Laboratory Last Values WBC 4.1 K/mm3 (4.5-11.0) L 11/05/20 12:19 RBC 3.23 M/mm3 (3.65-5.03) L 11/05/20 12:19 Hgb 9.9 gm/dl (11.8-15.2) L 11/05/20 12:19 Hct 31.0 % (35.5-45.6) L 11/05/20 12:19 MCV 96 fl (84-94) H 11/05/20 12:19 MCH 31 pg (28-32) 11/05/20 12:19 MCHC 32 % (32-34) 11/05/20 12:19 RDW 17.6 % (13.2-15.2) H 11/05/20 12:19 Plt Count 147 K/mm3 (140-440) 11/05/20 12:19 Lymph % (Auto) 12.4 % (13.4-35.0) L 11/05/20 12:19 [place] % (Auto) 10.2 % (0.0-7.3) H 11/05/20 12:19 Eos % (Auto) 0.6 % (0.0-4.3) 11/05/20 12:19 Baso % (Auto) 0.5 % (0.0-1.8) 11/05/20 12:19 Lymph # (Auto) 0.5 K/mm3 (1.2-5.4) L 11/05/20 12:19 [place] # (Auto) 0.4 K/mm3 (0.0-0.8) 11/05/20 12:19 Eos # (Auto) 0.0 K/mm3 (0.0-0.4) 11/05/20 12:19 Baso # (Auto) 0.0 K/mm3 (0.0-0.1) 11/05/20 12:19 Seg Neutrophils % 76.3 % (40.0-70.0) H 11/05/20 12:19 Seg Neutrophils # 3.2 K/mm3 (1.8-7.7) 11/05/20 12:19 Sodium 137 mmol/L (137-145) 11/05/20 20:20 Potassium 3.7 mmol/L (3.6-5.0) D 11/05/20 20:20 Chloride 92.4 mmol/L (98-107) L 11/05/20 20:20 Carbon Dioxide 28 mmol/L (22-30) D 11/05/20 20:20 Anion Gap 20 mmol/L 11/05/20 20:20 BUN 56 mg/dL (9-20) H 11/05/20 20:20 Creatinine 11.2 mg/dL (0.8-1.3) H D 11/05/20 20:20 Estimated GFR 6 ml/min 11/05/20 20:20 BUN/Creatinine Ratio 5 % 11/05/20 20:20 Glucose 72 mg/dL (75-100) L 11/05/20 20:20 Calcium 8.6 mg/dL (8.4-10.2) D 11/05/20 20:20 Total Bilirubin 0.30 mg/dL (0.1-1.2) 11/05/20 12:19 AST 9 units/L (5-40) 11/05/20 12:19 ALT 7 units/L (7-56) 11/05/20 12:19 Alkaline Phosphatase 39 units/L (35-129) 11/05/20 12:19 Total Protein 7.4 g/dL (6.3-8.2) 11/05/20 12:19 Albumin 3.9 g/dL (3.9-5) 11/05/20 12:19 Albumin/Globulin Ratio 1.1 % 11/05/20 12:19 Hepatitis A IgM Ab Non-reactive (NonReactive) 11/05/20 14:31 Hep Bs Antigen Non-reactive (Negative) 11/05/20 14:31 Hep B Core IgM Ab Non-reactive (NonReactive) 11/05/20 14:31 Hepatitis C Antibody Non-reactive (NonReactive) 11/05/20 14:31 Short CBC 11/05/20 Range/Units 12: WBC 4.1 L (4.5-11.0) K/mm3 Hgb 9.9 L (11.8-15.2) gm/dl Hct 31.0 L (35.5-45.6) % Plt Count 147 (140-440) K/mm3 Assessment and Plan Advance Directives: Yes (Full code) VTE prophylaxis?: Chemical Plan of care discussed with patient/family: Yes - Patient Problems (1) Hyperkalemia Current Visit: Yes Status: Acute Plan to address problem: Patient admitted for emergent hemodialysis and low potassium bath Report potassium level after dialysis (2) End-stage renal disease needing dialysis Current Visit: Yes Status: Chronic Plan to address problem: Continue hemodialysis Nephrology consult appreciated Emergent hemodialysis now (3) Hypertension Current Visit: Yes Status: Chronic Qualifiers: Hypertension type: essential hypertension Qualified Code(s): I10 - Essential (primary) hypertension Plan to address problem: Continue antihypertensives (4) DVT prophylaxis Current Visit: No Status: Acute Plan to address problem: Continue heparin and GI prophylaxis
--- NOTE | 2020-11-05 21:45 | Discharge Summary ---
Providers - Providers Date of Admission: 11/05/20 14:12 Date of discharge: 11/05/20 Attending physician: JONATAN MAIN 11/05/20 14:10 Consult to Physician [CONS] Routine Comment: Consulting Provider: TAJ SORTO Physician Instructions: Reason For Exam: dialysis, hyperkalemia Primary care physician: [employer] Hospitalization Condition: Serious Hospital course: Chief complaint: Missed hemodialysis for 1 week History of present illness: 44-year-old -[place] male with history of hypertension end-stage renal disease has missed dialysis for 1 week. His dialysis center sent him here for clearance. In the emergency room patient was found to have high potassium level because of which patient is being admitted for emergency dialysis and observation status. No shortness of breath. No chest pain. No nausea no vomiting. No fever or chills. No exposure to coronavirus. Assessment and Plan Advance Directives: Yes (Full code) VTE prophylaxis?: Chemical Plan of care discussed with patient/family: Yes - Patient Problems (1) Hyperkalemia Current Visit: Yes Status: Acute Plan to address problem: Patient admitted for emergent hemodialysis and low potassium bath Repeatt potassium level after dialysis--3.7 (2) End-stage renal disease needing dialysis Current Visit: Yes Status: Chronic Plan to address problem: Continue hemodialysis Nephrology consult appreciated Emergent hemodialysis now (3) Hypertension Current Visit: Yes Status: Chronic Qualifiers: Hypertension type: essential hypertension Qualified Code(s): I10 - Essential (primary) hypertension Plan to address problem: Continue antihypertensives (4) noncompliance Patient counseled about compliance and follow-up with the dialysis on a regular basis Also follow-up with primary care physician and nephrology Disposition: DC-01 TO HOME OR SELFCARE Time spent for discharge: 30 minutes - Discharge Diagnoses (1) Hyperkalemia Status: Acute (2) End-stage renal disease needing dialysis Status: Chronic (3) Hypertension Status: Chronic Qualifiers: Hypertension type: essential hypertension Qualified Code(s): I10 - Essential (primary) hypertension (4) DVT prophylaxis Status: Acute Core Measure Documentation - Palliative Care Palliative Care/ Comfort Measures: Not Applicable - Core Measures Any of the following diagnoses?: none Exam - Constitutional Vitals: Temp Pulse Resp BP Pulse Ox 98.2 F 80 18 109/78 100 11/05/20 20:04 11/05/20 20:04 11/05/20 20:04 11/05/20 20:04 11/05/20 15:00 General appearance: Present: no acute distress, well-nourished - EENT Eyes: Present: PERRL ENT: hearing intact, clear oral mucosa - Neck Neck: Present: supple, normal ROM - Respiratory Respiratory effort: normal Respiratory: bilateral: CTA - Cardiovascular Heart rate: 78 Rhythm: regular Heart Sounds: Present: S1 & S2. Absent: rub, click - Extremities Extremities: pulses symmetrical, No edema Peripheral Pulses: within normal limits - Abdominal General gastrointestinal: Present: soft, non-tender, non-distended, normal bowel sounds Male genitourinary: Present: normal - Integumentary Integumentary: Present: clear, warm, dry - Musculoskeletal Musculoskeletal: gait normal, strength equal bilaterally - Psychiatric Psychiatric: appropriate mood/affect, intact judgment & insight - Neurologic Neurologic: CNII-XII intact, moves all extremities Plan Activity: no restrictions Follow up with: BORIS MARQUIS MD [Primary Care Provider] - 7 Days TAJ SORTO MD [Staff Physician] - 7 Days
== END 2020-11-05 22:30 | disposition home or self-care (01) ==
LOC: ED 11:33 → 4A 14:12
PROVIDERS: ADMIT Internal Medicine; ATTEND Internal Medicine
DX: I12.0 Hypertensive chronic kidney disease with stage 5 chronic kidney disease or end stage renal disease (principal); N18.6 End stage renal disease; E87.5 Hyperkalemia; F17.200 Nicotine dependence, unspecified, uncomplicated; Z98.890 Other specified postprocedural states; Z79.4 Long term (current) use of insulin; Z99.2 Dependence on renal dialysis; Z91.14 Patient's other noncompliance with medication regimen; Z79.899 Other long term (current) drug therapy
CPT/HCPCS: 36415; 80053; 80074; 85025; 94640; 96374; 96375; 96376; 99291; G0378; J0610; 80048; J1815

== ENCOUNTER 2021-05-05 11:20 | Emergency (ER) | payer MEDICARE | END 2021-05-05 15:55 | LOC: ED 11:20 ==

== ENCOUNTER 2021-05-06 22:02 | Emergency (ER) | payer MEDICARE | END 2021-05-06 22:07 | disposition left against medical advice (07) | LOC: ED 22:02 | DX: Z00.8 Encounter for other general examination (principal); Z53.21 Procedure and treatment not carried out due to patient leaving prior to being seen by health care provider ==

== ENCOUNTER 2021-10-20 11:16 | Observation (INO) | payer MEDICARE ==
--- NOTE | 2021-10-20 12:02 | Emergency Department Report ---
HPI - General Chief Complaint: Medical Clearance Time Seen by Provider: 10/20/21 11:43 - HPI HPI: 45-year-old male presents to the emergency department for medical clearance for dialysis. He has a history of end-stage renal disease on hemodialysis on Tue/Tuesday/Tuesday. Because of the recent s the patient last had dialysis on Tuesday, 10/13, and then missed his scheduled Tuesday dialysis session. When he went in to get dialysis yesterday he was told he would have to come to the emergency department for a medical clearance first. He denies having any shortness of breath, chest pain, lower extremity swelling or any symptoms at this time. He follows with Dr. Carlton for nephrology. ED Past Medical Hx - Past Medical History Hx Hypertension: Yes (per pt resolved) Hx Renal Disease: Yes - Surgical History Additional Surgical History: left arm AV graft, parathyroid removed - Social History Smoking Status: Current Every Day Smoker Substance Use Type: None - Medications Home Medications: Home Medications Medication Instructions Recorded Confirmed Last Taken Type Calcium Acetate 667 mg PO TID 01/10/14 03/30/18 03/29/18 22:00 History 667 mg HYDROcodone/APAP 5-325 [[place] 1 each PO Q6HR PRN #40 tablet 03/30/18 Unknown Rx 5-325 mg TAB] ED Review of Systems ROS: Stated complaint: NEED DIALYSIS Other details as noted in HPI Comment: All other systems reviewed and negative Constitutional: denies: chills, fever Eyes: denies: eye pain, vision change ENT: denies: ear pain, throat pain Respiratory: denies: cough, shortness of breath Cardiovascular: denies: chest pain, palpitations Gastrointestinal: denies: abdominal pain, vomiting Genitourinary: denies: dysuria, discharge Musculoskeletal: denies: back pain, arthralgia Skin: denies: rash, lesions Neurological: denies: headache, weakness Physical Exam - Physical Exam Vital Signs: Vital Signs 10/20/21 11:21 Temperature 97.9 F Pulse Rate 62 Respiratory 16 Rate Blood Pressure 129/87 O2 Sat by Pulse 100 Oximetry Physical Exam: GENERAL: The patient is well-developed well-nourished. HENT: Normocephalic. Atraumatic. Patient has moist mucous membranes. EYES: Extraocular motions are intact. NECK: Supple. Trachea is midline. CHEST/LUNGS: Clear to auscultation. There is no respiratory distress noted. HEART/CARDIOVASCULAR: Regular. There is no tachycardia. There is no murmur. ABDOMEN: Abdomen is soft, nontender. Patient has normal bowel sounds. SKIN: Skin is warm and dry. NEURO: The patient is awake, alert, and oriented. The patient is cooperative. Normal speech. MUSCULOSKELETAL: There is no tenderness or deformity. There is no limitation range of motion. ED Course Vital Signs 10/20/21 11:21 Temperature 97.9 F Pulse Rate 62 Respiratory 16 Rate Blood Pressure 129/87 O2 Sat by Pulse 100 Oximetry - Consultations Consultation #1: 10/20/21 13:59 I spoke to KAYLENE Donaldson, working for Dr. Carlton at [facility] nephrology. They have arranged for the patient to get dialysis today but it may be a few hours until he gets a spot in one of the chairs. They have recommended to give the hyperkalemia cocktail minus Kayexalate. ED Medical Decision Making - Lab Data Result diagrams: 10/20/21 12:19 10/20/21 12:19 Lab Results 10/20/21 10/20/21 Range/Units 12:19 12:19 WBC 3.7 L (4.5-11.0) K/mm3 RBC 3.68 (3.65-5.03) M/mm3 Hgb 10.8 L (11.8-15.2) gm/dl Hct 34.6 L (35.5-45.6) % MCV 94 (84-94) fl MCH 30 (28-32) pg MCHC 31 L (32-34) % RDW 16.0 H (13.2-15.2) % Plt Count 150 (140-440) K/mm3 Lymph % (Auto) 20.3 (13.4-35.0) % Mcintosh % (Auto) 13.4 H (0.0-7.3) % Eos % (Auto) 1.1 (0.0-4.3) % Baso % (Auto) 1.3 (0.0-1.8) % Lymph # (Auto) 0.8 L (1.2-5.4) K/mm3 Mcintosh # (Auto) 0.5 (0.0-0.8) K/mm3 Eos # (Auto) 0.0 (0.0-0.4) K/mm3 Baso # (Auto) 0.0 (0.0-0.1) K/mm3 Seg Neutrophils % 63.9 (40.0-70.0) % Seg Neutrophils # 2.4 (1.8-7.7) K/mm3 Sodium 138 (137-145) mmol/L Potassium 6.5 H* (3.6-5.0) mmol/L Chloride 94.4 L (98-107) mmol/L Carbon Dioxide 16 L (22-30) mmol/L Anion Gap 34 mmol/L BUN 105 H (9-20) mg/dL Creatinine 22.9 H (0.8-1.3) mg/dL Estimated GFR 3 ml/min BUN/Creatinine Ratio 5 % Glucose 76 (75-100) mg/dL Calcium 6.4 L (8.4-10.2) mg/dL - Medical Decision Making This patient presents to the emergency department for a medical clearance to get dialysis after missing dialysis last Tuesday and having gotten his last dialysis session about 1 week ago. Otherwise he has no physical complaints. Vital signs reassuring including being afebrile. However his labs show hyperkalemia with a potassium level of 6.5. There is some developing uremia with a BUN of about 105 and his creatinine is 22. Nephrology was contacted and consulted. The patient was given insulin and glucose, calcium, and albuterol to temporarily improve the hyperkalemia, and the patient is due to have dialysis in a few hours. He was accepted for admission by the hospitalist, Dr. Knapp. Critical Care Time: No Critical care attestation.: If time is entered above; I have spent that time in minutes in the direct care of this critically ill patient, excluding procedure time. ED Disposition Clinical Impression: ESRD needing dialysis, Hyperkalemia, Uremia, Missed dialysis Disposition: ADMITTED INPATIENT Is pt being admited?: Yes Condition: Serious Referrals: PRIMARY CARE, [Primary Care Provider] - 3-5 Days Time of Disposition: 13:51
[2021-10-20 12:59] LABS: Calcium 6.4 mg/dL (8.4-10.2)
[2021-10-20 13:00] LABS: Basophils % (Auto) 1.3 % (0.0-1.8); Eosinophils % (Auto) 1.1 % (0.0-4.3); Hematocrit 34.6 % (35.5-45.6); Hemoglobin 10.8 gm/dl (11.8-15.2); Lymphocytes # (Auto) 0.8 K/mm3 (1.2-5.4); Lymphocytes % (Auto) 20.3 % (13.4-35.0); Mean Corpuscular HGB Conc 31 % (32-34); Mean Corpuscular Volume 94 fl (84-94); Monocytes # (Auto) 0.5 K/mm3 (0.0-0.8); Monocytes % (Auto) 13.4 % (0.0-7.3); Platelet Count 150 K/mm3 (140-440); Red Blood Count 3.68 M/mm3 (3.65-5.03)
[2021-10-20] MEDS ORDERED: CALCIUM GLUCONATE 1,000 MG in SODIUM CHLORIDE 0.9% 100 ML IV ONE (13:52)
[2021-10-20] MEDS ORDERED: ALBUTEROL 2.5 MG/3 ML NEBU IH ONE (13:52)
[2021-10-20] MEDS ORDERED: DEXTROSE 50% IN WATER (25GM) 50 ML SYRINGE IV ONE (13:53)
[2021-10-20] MEDS ORDERED: INSULIN REGULAR, HUMAN 100 UNITS/1 ML IV ONE (13:53)
[2021-10-20 16:32] LABS: Hepatitis C Virus Antibody Non-Reactive (NonReactive)
[2021-10-20 16:47] LABS: Hepatitis B Surface Antigen Nonreactive (Negative)
[2021-10-20] MEDS ORDERED: SODIUM CHLORIDE 0.9% 100 ML IV PRN (18:07)
[2021-10-20] MEDS ORDERED: PROMETHAZINE 25 MG RECT SUPP PR PRN (20:33)
[2021-10-20] MEDS ORDERED: ACETAMINOPHEN 325 MG TAB PO PRN (20:33)
[2021-10-20] MEDS ORDERED: METOCLOPRAMIDE 10 MG/2 ML INJ IV PRN (20:33)
[2021-10-20] MEDS ORDERED: oxyCODONE /ACETAMINOPHEN 5-325MG TAB PO PRN (20:33)
[2021-10-20] MEDS ORDERED: ONDANSETRON 4 MG/2 ML INJ IV PRN (20:33)
--- NOTE | 2021-10-20 20:33 | History and Physical Report ---
History of Present Illness Date of examination: 10/20/21 Date of admission: 10/20/21 13:51 History of present illness: 45-year-old male presents to the emergency department for medical clearance for dialysis. He has a history of end-stage renal disease on hemodialysis on Tuesday/Tuesday/Tuesday. Because of the recent s the patient last had dialysis on Tuesday, 10/13, and then missed his scheduled Tuesday dialysis session. When he went in to get dialysis yesterday he was told he would have to come to the emergency department for a medical clearance first. He denies having any shortness of breath, chest pain, lower extremity swelling or any symptoms at this time. He follows with Dr. Carlton for nephrology. ED Past Medical Hx - Past Medical History Hx Hypertension: Yes (per pt resolved) Hx Renal Disease: Yes - Surgical History Additional Surgical History: left arm AV graft, parathyroid removed - Social History Smoking Status: Current Every Day Smoker Substance Use Type: None - Medications Home Medications: Home Medications Medication Instructions Recorded Confirmed Last Taken Type Calcium Acetate 667 mg PO TID 01/10/14 03/30/18 03/29/18 22:00 History 667 mg HYDROcodone/APAP 5-325 [[place] 1 each PO Q6HR PRN #40 tablet 03/30/18 Unknown Rx 5-325 mg TAB] Review of Systems ROS: Stated complaint: NEED DIALYSIS Other details as noted in HPI Comment: All other systems reviewed and negative Constitutional: denies: chills, fever Eyes: denies: eye pain, vision change ENT: denies: ear pain, throat pain Respiratory: denies: cough, shortness of breath Cardiovascular: denies: chest pain, palpitations Gastrointestinal: denies: abdominal pain, vomiting Genitourinary: denies: dysuria, discharge Musculoskeletal: denies: back pain, arthralgia Skin: denies: rash, lesions Neurological: denies: headache, weakness Medications and Allergies Allergies Allergy/AdvReac Type Severity Reaction Status Date / Time cefazolin sodium [From [facility]] Allergy Vomiting Verified 03/29/18 13:43 Home Medications Medication Instructions Recorded Confirmed Last Taken Type Calcium Acetate 667 mg PO TID 01/10/14 03/30/18 03/29/18 22:00 History 667 mg HYDROcodone/APAP 5-325 [[place] 1 each PO Q6HR PRN #40 tablet 03/30/18 Unknown Rx 5-325 mg TAB] Active Meds: Active Medications Calcium Acetate (Calcium Acetate 667 Mg Cap) 667 mg PO TID VICKY Sodium Chloride (Nacl 0.9%) 100 mls @ 999 mls/hr IV CARROLL PRN PRN Reason: Hypotension Exam - Constitutional Vitals: Temp Pulse Resp BP Pulse Ox 97.9 F 70 15 128/80 100 10/20/21 11:21 10/20/21 16:16 10/20/21 16:16 10/20/21 16:16 10/20/21 16:16 General appearance: Present: no acute distress, well-nourished - EENT Eyes: Present: PERRL ENT: hearing intact, clear oral mucosa - Neck Neck: Present: supple, normal ROM - Respiratory Respiratory effort: normal Respiratory: bilateral: CTA - Cardiovascular Heart Sounds: Present: S1 & S2. Absent: rub, click - Extremities Extremities: pulses symmetrical, No edema Peripheral Pulses: within normal limits - Abdominal General gastrointestinal: Present: soft, non-tender, non-distended, normal bowel sounds Male genitourinary: Present: normal - Integumentary Integumentary: Present: clear, warm, dry - Musculoskeletal Musculoskeletal: gait normal, strength equal bilaterally - Psychiatric Psychiatric: appropriate mood/affect, intact judgment & insight - Neurologic Neurologic: CNII-XII intact, moves all extremities Results - Labs CBC & Chem 7: 10/20/21 12:19 10/20/21 12:19 Labs: Laboratory Last Values WBC 3.7 K/mm3 (4.5-11.0) L 10/20/21 12:19 RBC 3.68 M/mm3 (3.65-5.03) 10/20/21 12:19 Hgb 10.8 gm/dl (11.8-15.2) L 10/20/21 12:19 Hct 34.6 % (35.5-45.6) L 10/20/21 12:19 MCV 94 fl (84-94) 10/20/21 12:19 MCH 30 pg (28-32) 10/20/21 12:19 MCHC 31 % (32-34) L 10/20/21 12:19 RDW 16.0 % (13.2-15.2) H 10/20/21 12:19 Plt Count 150 K/mm3 (140-440) 10/20/21 12:19 Lymph % (Auto) 20.3 % (13.4-35.0) 10/20/21 12:19 [place] % (Auto) 13.4 % (0.0-7.3) H 10/20/21 12:19 Eos % (Auto) 1.1 % (0.0-4.3) 10/20/21 12:19 Baso % (Auto) 1.3 % (0.0-1.8) 10/20/21 12:19 Lymph # (Auto) 0.8 K/mm3 (1.2-5.4) L 10/20/21 12:19 [place] # (Auto) 0.5 K/mm3 (0.0-0.8) 10/20/21 12:19 Eos # (Auto) 0.0 K/mm3 (0.0-0.4) 10/20/21 12:19 Baso # (Auto) 0.0 K/mm3 (0.0-0.1) 10/20/21 12:19 Seg Neutrophils % 63.9 % (40.0-70.0) 10/20/21 12:19 Seg Neutrophils # 2.4 K/mm3 (1.8-7.7) 10/20/21 12:19 Sodium 138 mmol/L (137-145) 10/20/21 12:19 Potassium 6.5 mmol/L (3.6-5.0) H* 10/20/21 12:19 Chloride 94.4 mmol/L (98-107) L 10/20/21 12:19 Carbon Dioxide 16 mmol/L (22-30) L 10/20/21 12:19 Anion Gap 34 mmol/L 10/20/21 12:19 BUN 105 mg/dL (9-20) H 10/20/21 12:19 Creatinine 22.9 mg/dL (0.8-1.3) H 10/20/21 12:19 Estimated GFR 3 ml/min 10/20/21 12:19 BUN/Creatinine Ratio 5 % 10/20/21 12:19 Glucose 76 mg/dL (75-100) 10/20/21 12:19 Calcium 6.4 mg/dL (8.4-10.2) L 10/20/21 12:19 Hepatitis A IgM Ab Non-reactive (NonReactive) 10/20/21 14:57 Hep Bs Antigen Nonreactive (Negative) 10/20/21 14:57 Hep B Core IgM Ab Non-reactive (NonReactive) 10/20/21 14:57 Hepatitis C Antibody Non-reactive (NonReactive) 10/20/21 14:57 Assessment and Plan Advance Directives: Yes (Full code) VTE prophylaxis?: Chemical Plan of care discussed with patient/family: Yes - Patient Problems (1) Hyperkalemia Current Visit: Yes Status: Acute (2) Missed dialysis Current Visit: Yes Status: Acute (3) End-stage renal disease needing dialysis Current Visit: Yes Status: Chronic (4) Fluid overload Current Visit: No Status: Acute (5) Hypertension Current Visit: No Status: Chronic
[2021-10-20] MEDS ORDERED: HEPARIN 5,000 UNIT/1 ML VIAL SUB-Q SCH (22:00)
[2021-10-20] MEDS ORDERED: FAMOTIDINE 20 MG TAB PO SCH (22:00)
[2021-10-20 22:44] VITALS: BP 132/86
[2021-10-21] MEDS ORDERED: CALCIUM ACETATE 667 MG CAP PO SCH (08:00)
== END 2021-10-20 22:20 | disposition left against medical advice (07) ==
LOC: ED 11:16 → INTOOBSV 13:51 → 4A 13:51
PROVIDERS: ADMIT Internal Medicine; ATTEND Internal Medicine
DX: E87.5 Hyperkalemia (principal); E87.70 Fluid overload, unspecified; I12.0 Hypertensive chronic kidney disease with stage 5 chronic kidney disease or end stage renal disease; N18.6 End stage renal disease; F17.210 Nicotine dependence, cigarettes, uncomplicated; Z99.2 Dependence on renal dialysis; Z79.899 Other long term (current) drug therapy; Z98.890 Other specified postprocedural states
CPT/HCPCS: 36415; 80048; 80074; 84132; 85025; 96374; 96375; 99284; G0257; G0378; J0610; J3490; Q9967; J1815

== ENCOUNTER 2022-05-19 20:51 | Emergency (ER) | payer MEDICARE ==
[2022-05-19 21:55] VITALS: BP 110/63
--- NOTE | 2022-05-19 22:37 | XRay Report ---
Right hand, 3 views HISTORY: Injury COMPARISON: None FINDINGS: There is diffuse nonspecific soft tissue swelling of the right thumb. No soft tissue gas or radiopaque foreign body. No aggressive cortical destructive changes. No acute fracture or malalignme nt. 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 Signer Name: Ted Diallo MD Signed: 05/19/2022 10:32 PM Workstation Name: [id number]
[2022-05-20] MEDS ORDERED: NEOMY 3.5 MG/BACIT 400 UNITS/POLY B 5000 UNITS/GM OINT PACKET TP ONE (08:20)
--- NOTE | 2022-05-20 08:23 | Emergency Department Report ---
- General Chief Complaint: Extremity Injury, Upper Stated Complaint: RT THUMB WOUND Time Seen by Provider: 05/20/22 07:53 Source: patient Mode of arrival: Ambulatory Limitations: No Limitations - History of Present Illness Initial Comments: Mr. Bell is a 46-year-old that comes to the emergency room with a thumb wound. He states that he closed his thumb in the door 2 weeks ago. It looks like he had an avulsion wound of the skin of the thumb. It is red and inflamed. He was admitted to the ER about 12 hours ago. On exam in [facility] he is in no acute distress. He has no fever. He has full range of motion. But there is soft tissue swelling and he endorses drainage. No fever or chills. -: week(s) Place: home Patient Tetanus UTD: Yes Context: accidental Associated Symptoms: none - Related Data Home Medications Medication Instructions Recorded Confirmed Last Taken Calcium Acetate 667 mg PO TID 01/10/14 03/30/18 03/29/18 22:00 667 mg Previous Rx's Medication Instructions Recorded Last Taken Type Clindamycin [Clindamycin CAP] 300 mg PO Q8H #30 cap 05/20/22 Unknown Rx Allergies Allergy/AdvReac Type Severity Reaction Status Date / Time cefazolin sodium [From [facility]] Allergy Vomiting Verified 03/29/18 13:43 ED Review of Systems ROS: Stated complaint: RT THUMB WOUND Other details as noted in HPI Comment: All other systems reviewed and negative ED Past Medical Hx - Past Medical History Previous Medical History?: Yes Hx Hypertension: Yes (per pt resolved) Hx Renal Disease: Yes - Surgical History Past Surgical History?: Yes Additional Surgical History: left arm AV graft, parathyroid removed - Family History Family history: no significant - Social History Smoking Status: Current Every Day Smoker Substance Use Type: None - Medications Home Medications: Home Medications Medication Instructions Recorded Confirmed Last Taken Type Calcium Acetate 667 mg PO TID 01/10/14 03/30/18 03/29/18 22:00 History 667 mg Clindamycin [Clindamycin CAP] 300 mg PO Q8H #30 cap 05/20/22 Unknown Rx ED Physical Exam - General Limitations: No Limitations General appearance: alert, in no apparent distress - Head Head exam: Present: atraumatic, normocephalic - Eye Eye exam: Present: normal appearance - ENT ENT exam: Present: mucous membranes moist - Neck Neck exam: Present: normal inspection - Respiratory Respiratory exam: Present: normal lung sounds bilaterally. Absent: respiratory distress - Cardiovascular Cardiovascular Exam: Present: regular rate, normal rhythm. Absent: systolic murmur, diastolic murmur, rubs, gallop - GI/Abdominal GI/Abdominal exam: Present: soft, normal bowel sounds - Rectal Rectal exam: Present: deferred - Extremities Exam Extremities exam: Present: normal inspection - Back Exam Back exam: Present: normal inspection - Neurological Exam Neurological exam: Present: alert, oriented X3 - Psychiatric Psychiatric exam: Present: normal affect, normal mood - Skin Skin exam: Present: warm, dry, normal color, other. Absent: rash - Other Other exam information: Right thumb with involves soft tissue, now 2 weeks old, skin healing with granulation. Patient does report drainage. Although there is none on exam. ED Course Vital Signs 05/19/22 20:56 Temperature 98.2 F Pulse Rate 88 Respiratory 18 Rate Blood Pressure 110/63 O2 Sat by Pulse 96 Oximetry ED Medical Decision Making - Radiology Data Radiology results: report reviewed, image reviewed no fx - Medical Decision Making Vital Signs 05/19/22 20:56 Temperature 98.2 F Pulse Rate 88 Respiratory 18 Rate Blood Pressure 110/63 O2 Sat by Pulse 96 Oximetry Wound care provided and patient educated on wound care. Patient is allergic to cephalosporins/penicillins. Patient being discharged home with discharge plan of care including clindamycin, diet, activity and follow-up. He verbalizes understanding of plan of care - Differential Diagnosis 2-week old wound, ro fx Critical care attestation.: If time is entered above; I have spent that time in minutes in the direct care of this critically ill patient, excluding procedure time. ED Disposition Clinical Impression: Wound infection Disposition: HOME / SELF CARE / HOMELESS Is pt being admited?: No Does the pt Need Aspirin: No Condition: Stable Instructions: Cellulitis, Adult Additional Instructions: keep wound clean and dry follow up with PCP on Tuesday to make sure this is getting better med as ordered until gone motrin or tylenol for pain Prescriptions: Clindamycin [Clindamycin CAP] 300 mg PO Q8H #30 cap Referrals: IRMA LORENZO MD [Staff Physician] - 3-5 Days Time of Disposition: 08:20
== END 2022-05-20 09:30 | disposition home or self-care (01) ==
LOC: ED 20:51
DX: T81.49XA Infection following a procedure, other surgical site, initial encounter (principal); F17.200 Nicotine dependence, unspecified, uncomplicated; I10 Essential (primary) hypertension; Z88.8 Allergy status to other drugs, medicaments and biological substances
CPT/HCPCS: 99283

== ENCOUNTER 2022-06-28 07:58 | Emergency (ER) | payer MEDICARE ==
[2022-06-28 08:19] VITALS: BP 103/71
== END 2022-06-28 13:00 | disposition left against medical advice (07) ==
LOC: ED 07:58
DX: Z00.00 Encounter for general adult medical examination without abnormal findings (principal); Z53.21 Procedure and treatment not carried out due to patient leaving prior to being seen by health care provider